=== PATIENT | female | born 1990 | race Two or more races ===

== ENCOUNTER 2020-01-26 12:58 | Emergency (ER) | payer OTHER ==
[~2020-01-26] VITALS: Ht 162.6 cm; Wt 58.2 kg
[2020-01-26 14:10] VITALS: BP 112/64
== END 2020-01-26 14:10 | disposition home or self-care (01) ==
LOC: ED 12:58
DX: M25.572 Pain in left ankle and joints of left foot (principal)

== ENCOUNTER 2020-11-16 15:15 | Emergency (ER) | payer OTHER ==
[2020-11-16] MEDS ORDERED: REGLAN10 MG PO (17:30)
[2020-11-16] MEDS ORDERED: PRENATAL MULTI1 CAP PO (17:30)
[2020-11-16 17:44] VITALS: BP 111/63
== END 2020-11-16 18:04 | disposition home or self-care (01) ==
LOC: ED 15:15
DX: O26.899 Other specified pregnancy related conditions, unspecified trimester (principal); R11.0 Nausea; Z3A.00 Weeks of gestation of pregnancy not specified